=== PATIENT | male | born 1965 | race African-American/Black ===

== ENCOUNTER 2021-01-24 17:38 | Inpatient (IN) | payer BC ==
[2021-01-24] MEDS ORDERED: Morphine 4 MG/ML VIAL ONE (20:53)
[2021-01-24] MEDS ORDERED: hydrALAZINE 20 MG/ML VIAL SLOW IVP PRN (21:04)
[2021-01-24] MEDS ORDERED: Ondansetron PF 4 MG/2 ML Vial IVP PRN (21:04)
[2021-01-24] MEDS ORDERED: Ondansetron ODT 4 MG TAB PO PRN (21:04)
[2021-01-24] MEDS ORDERED: Dextrose 50% Abboject 50 ML SYRINGE SLOW IVP PRN (21:04)
[2021-01-24] MEDS ORDERED: Morphine 4 MG/ML VIAL SLOW IVP PRN ×2 (21:04→21:18)
[2021-01-24] MEDS ORDERED: Dextrose 5% in Water 1,000 ML IV PRN (21:04)
[2021-01-24] MEDS ORDERED: traMADol HCl 50 MG TAB PO PRN (21:14)
[2021-01-24 21:17] VITALS: BMI 29.9
[2021-01-24] MEDS: traMADol HCl 50 MG TAB PO SCH (21:47)
[2021-01-24] MEDS: Acetaminophen 500 MG TAB PO SCH (23:44)
[2021-01-24] MEDS: Ketorolac Tromethamine 30 MG/ML VIAL IVP SCH (23:45)
[2021-01-24] MEDS: Sodium Chloride 0.9% 1,000 ML IV SCH (23:45)
[2021-01-25] MEDS: traMADol HCl 50 MG TAB PO SCH ×4 (03:13→22:56)
[2021-01-25] MEDS: Ketorolac Tromethamine 30 MG/ML VIAL IVP SCH ×3 (05:37→19:24)
[2021-01-25] MEDS: Acetaminophen 500 MG TAB PO SCH ×3 (05:37→19:27)
[2021-01-25 07:09] LABS: SARS-CoV-2 NAA Rapid Test Not Detected (NotDetected)
[2021-01-25] MEDS ORDERED: CEFAZOLIN 2 GM in Premix Bag 1 BAG IVPB SCH (07:30)
[2021-01-25] MEDS: Sodium Chloride 0.9% 1,000 ML IV SCH ×3 (07:56→23:10)
[2021-01-25] MEDS: Famotidine 20 MG TAB PO SCH ×2 (07:56→21:13)
[2021-01-25] MEDS ORDERED: ceFAZolin Sodium/D5W 2 GM in Premix Bag 1 BAG IVPB SCH (08:00)
[2021-01-25] MEDS: Cyclobenzaprine 10 MG TAB PO PRN ×2 (08:04→21:14)
[2021-01-25] MEDS ORDERED: FLU VACC QS2021-22(6MOS UP)/PF 60 MCG/0.5 ML SYRINGE IM ONE (09:00)
[2021-01-25 10:42] LABS: #Eosinphils 0.1 thou/uL (0.0-0.7); #Lymphocytes 2.9 thou/uL (1.20-3.40); #Monocytes 1.2 thou/uL (0.11-0.59); #Neutrophils 7.3 thou/uL (1.40-6.50); %Basophils 0.1 % (0.0-1.0); %Eosinophils 1.2 % (0.0-10.0); %Lymphocytes 24.8 % (21.0-51.0); %Monocytes 10.5 % (0.0-10.0); %Neutrophils 63.4 % (42.0-75.0); Hemoglobin 14.5 g/dL (14.0-18.0); Mean Corpuscular HGB CONC 33.6 g/dL (32.0-36.0); Mean Corpuscular Hemoglobin 29.2 pg (27.0-31.0); Mean Corpuscular Volume 87.1 fL (78.0-98.0); Mean Platelet Volume 8.2 fL (7.4-10.4); Platelet Count 158 thou/uL (130-400); RBC Distribution Width 12.4 % (11.5-14.5); Red Blood Cell (RBC) Count 4.95 mill/uL (4.70-6.10); White Blood Cell (WBC) Count 11.6 thou/uL (4.8-10.8)
[2021-01-25 10:56] LABS: Phosphorus 2.8 mg/dL (2.3-4.7)
[2021-01-25 10:58] LABS: Anion Gap 10 mmol/L (10-20); BUN (Urea Nitrogen) 18 mg/dL (8.4-25.7); Calc. Creatinine Clearance 136 mL/min (70-130); Calcium 8.4 mg/dL (7.8-10.44); Carbon Dioxide 26 mmol/L (22-29); Chloride 107 mmol/L (98-107); Glucose 94 mg/dL (70-105); Magnesium 1.7 mg/dL (1.6-2.6); Potassium 4.1 mmol/L (3.5-5.1); Sodium 139 mmol/L (136-145)
[2021-01-25] MEDS ORDERED: Fentanyl 100 MCG/2 ML VIAL ONE ×4 (14:12→16:53)
[2021-01-25] MEDS ORDERED: Midazolam HCl 2 mg/2 ml Vial ONE (14:12)
[2021-01-25] MEDS ORDERED: Ondansetron PF 4 MG/2 ML Vial ONE (14:36)
[2021-01-25] MEDS ORDERED: PROPOFOL 200 MG/20 ML VIAL ONE (14:36)
[2021-01-25] MEDS ORDERED: Dexamethasone 20 MG/5 ML VIAL ONE (14:36)
[2021-01-25] MEDS ORDERED: Labetalol HCl 100 MG/20 ML VIAL ONE (14:36)
[2021-01-25] MEDS ORDERED: Bupivacaine PF 0.5% 30 ML VIAL ONE (15:09)
[2021-01-25] MEDS ORDERED: Promethazine HCl 25 MG/ML VIAL IVPB PRN (15:20)
[2021-01-25] MEDS ORDERED: Promethazine HCl 25 MG/ML VIAL IM PRN (15:20)
[2021-01-25] MEDS ORDERED: Ondansetron HCl/PF 4 MG/2 ML Vial IVP PRN (15:20)
[2021-01-25] MEDS ORDERED: Sodium Chloride For Inhalation 0.9% 3 ML NEB ONE (16:42)
[2021-01-25] MEDS ORDERED: Albuterol Sulfate 1.25 MG/3 ML NEB ONE (16:42)
[2021-01-25 18:06] LABS: Troponin I Less than 0.010 ng/mL (< 0.028)
[2021-01-25] MEDS: CEFAZOLIN 2 GM, Admixture Fee 1 EACH in Sodium Chloride 0.9% 100 ML IVPB SCH (21:13)
[2021-01-25] MEDS ORDERED: ceFAZolin 2 GM/DEX 5% 100 ML BAG IVPB SCH (22:00)
[2021-01-26] MEDS: Acetaminophen 500 MG TAB PO SCH ×4 (02:09→18:26)
[2021-01-26] MEDS: Ketorolac Tromethamine 30 MG/ML VIAL IVP SCH ×3 (02:10→12:40)
[2021-01-26] MEDS: traMADol HCl 50 MG TAB PO SCH ×4 (04:36→21:29)
[2021-01-26] MEDS: CEFAZOLIN 2 GM, Admixture Fee 1 EACH in Sodium Chloride 0.9% 100 ML IVPB SCH (05:37)
[2021-01-26] MEDS: Sodium Chloride 0.9% 1,000 ML IV SCH ×2 (05:39→16:00)
[2021-01-26 05:42] LABS: #Lymphocytes 1.8 thou/uL (1.20-3.40); #Monocytes 1.4 thou/uL (0.11-0.59); #Neutrophils 12.7 thou/uL (1.40-6.50); %Basophils 0.2 % (0.0-1.0); %Eosinophils 0.1 % (0.0-10.0); %Lymphocytes 11.1 % (21.0-51.0); %Monocytes 8.7 % (0.0-10.0); Hemoglobin 13.2 g/dL (14.0-18.0); Mean Corpuscular Hemoglobin 28.9 pg (27.0-31.0); Mean Corpuscular Volume 87.6 fL (78.0-98.0); Mean Platelet Volume 8.2 fL (7.4-10.4); Platelet Count 153 thou/uL (130-400); RBC Distribution Width 12.4 % (11.5-14.5); Red Blood Cell (RBC) Count 4.57 mill/uL (4.70-6.10); White Blood Cell (WBC) Count 15.9 thou/uL (4.8-10.8)
[2021-01-26 05:51] LABS: Anion Gap 13 mmol/L (10-20); BUN (Urea Nitrogen) 14 mg/dL (8.4-25.7); Calc. Creatinine Clearance 116 mL/min (70-130); Carbon Dioxide 21 mmol/L (22-29); Chloride 109 mmol/L (98-107); Potassium 4.2 mmol/L (3.5-5.1); Sodium 139 mmol/L (136-145)
[2021-01-26 05:52] LABS: Calcium 8.3 mg/dL (7.8-10.44); Glucose 112 mg/dL (70-105); Magnesium 1.8 mg/dL (1.6-2.6); Phosphorus 2.9 mg/dL (2.3-4.7)
[2021-01-26] MEDS: Famotidine 20 MG TAB PO SCH ×2 (08:25→20:47)
[2021-01-26 09:31] LABS: Troponin I Less than 0.010 ng/mL (< 0.028)
[2021-01-26] MEDS: Cyclobenzaprine 10 MG TAB PO PRN (09:45)
[2021-01-26] MEDS ORDERED: Enoxaparin Sodium 40 MG/0.4 ML SYRINGE SC SCH (11:00)
[2021-01-26] MEDS: Ibuprofen 200 MG TAB PO SCH (18:25)
[2021-01-27] MEDS: Sodium Chloride 0.9% 1,000 ML IV SCH ×2 (00:15→08:56)
[2021-01-27] MEDS: Acetaminophen 500 MG TAB PO SCH ×4 (00:15→18:26)
[2021-01-27] MEDS: Ibuprofen 200 MG TAB PO SCH ×3 (04:19→18:26)
[2021-01-27] MEDS: traMADol HCl 50 MG TAB PO SCH ×3 (04:19→15:36)
[2021-01-27 07:40] VITALS: TEMP 97.8
[2021-01-27] MEDS: Famotidine 20 MG TAB PO SCH (08:59)
[2021-01-27] MEDS ORDERED: Enoxaparin Sodium 40 MG/0.4 ML SYRINGE SC SCH (09:00)
[2021-01-27] MEDS: Cyclobenzaprine 10 MG TAB PO PRN ×2 (09:02→19:20)
[2021-01-27 12:06] VITALS: BP 133/69
== END 2021-01-27 19:20 | disposition home or self-care (01) | DRG 492 ==
LOC: SURG B 17:38 → OBSVTOIN 21:04 → 2NO 01-25 18:25 → SURG B 01-27 14:43 → 2NO 01-27 14:44 → SURG B 01-27 17:49 → 2NO 01-27 17:50
PROVIDERS: ADMIT Surgery; ATTEND Surgery
PROC: 0QSH04Z Reposition Left Tibia with Internal Fixation Device, Open Approach (ICD-10-PCS; principal; 2021-01-25)
DX: S82.142A Displaced bicondylar fracture of left tibia, initial encounter for closed fracture (principal); J18.9 Pneumonia, unspecified organism; I47.1 Supraventricular tachycardia; F17.210 Nicotine dependence, cigarettes, uncomplicated; M25.462 Effusion, left knee; R94.31 Abnormal electrocardiogram [ECG] [EKG]; Z98.890 Other specified postprocedural states; W55.12XA Struck by horse, initial encounter
CPT/HCPCS: 36415; 71045; 76000; 80048; 83735; 84100; 84484; 85025; 93005; 93010; 93306; C1713; J0690; J1100; J1650; J1885; J2250; J2270; J2405; J2704; J3010; J3490; J7050; S0020; U0002